=== PATIENT | female | born 1945 | race Caucasian/White ===

== ENCOUNTER 2020-08-11 12:41 | Outpatient (REF) | payer MEDICARE, SELFPAY ==
[2020-08-11 12:40] VITALS: BP 168/74; PULSE 71; RESP 16; TEMP 36.9; O2SAT 98; BMI 36.2
== END 2020-08-11 12:42 | disposition home or self-care (01) ==
LOC: HO.MS 12:41
PROVIDERS: PCP Internal Medicine; Visit Provider Ophthalmology
PROC: (CPT 66821; principal; 2020-08-11 14:10)
DX: H26.491 Other secondary cataract, right eye (principal); I10 Essential (primary) hypertension; Z79.899 Other long term (current) drug therapy
CPT/HCPCS: 66821